=== PATIENT | female | born 1945 | race Caucasian/White ===

== ENCOUNTER → 2024-03-09 13:32 | Outpatient (REF) | payer MEDICARE, OTHER, SELFPAY | LOC: WDC 13:32 | PROVIDERS: ATTENDING PHYSICIAN Family Medicine | DX: Z12.31 Encounter for screening mammogram for malignant neoplasm of breast (principal) | CPT/HCPCS: 77063; 77067 ==

== ENCOUNTER → 2025-01-04 16:02 | Outpatient (REF) | payer MEDICARE, OTHER, SELFPAY | LOC: RAD 16:02 | PROVIDERS: ATTENDING PHYSICIAN Physician Assistant | DX: G89.29 Other chronic pain (principal) | CPT/HCPCS: 72110; 73502 ==

== ENCOUNTER 2025-03-17 09:42 | Emergency (ER) | payer MEDICARE, OTHER, SELFPAY ==
[2025-03-17 09:45] VITALS: BP 156/81
--- NOTE | 2025-03-17 10:07 | ED.GENMED ---
History of Present Illness
General
Chief Complaint: Swelling
Source: patient
Time Seen by Provider: 03/17/25 09:58
History of Present Illness
History of Present Illness:
Note:
CHIEF COMPLAINT(S)
Left leg swelling and ankle pain.
HISTORY OF PRESENT ILLNESS
The patient is an 79-year-old female presenting with swelling in her left leg, observed to be smaller compared to her right leg, and pain localized to the left ankle. The onset of swelling was during a trip to [facility], approximately
three and a [address] hours [address], over the weekend. The patient confirmed the swelling began while at her destination and was not present prior to travel. The ankle exhibits tenderness to the touch, although moving the ankle does not exacerbate the
pain. The patient denies any noticeable injury, chest pain, or dyspnea. She is not on anticoagulant therapy and has no recollection of a history of gout.
ADDITIONAL HISTORY OBTAINED FROM SOURCES OTHER THAN THE PATIENT
Per additional conversation, the patient was a passenger during travel.
PHYSICAL EXAM
- Nursing notes reviewed and vital signs reviewed.
- Edema observed in the left leg.
- Tenderness to palpation in the left ankle.
- Visibility of left ankle bones is reduced compared to the contralateral side.
PLAN
- Obtain an ultrasound of the left leg to evaluate for potential deep vein thrombosis.
- Perform an X-ray of the left ankle to assess for any structural abnormalities or fracture.
DIFFERENTIAL DIAGNOSIS
The Differential Diagnosis includes, in no particular order and is not limited to:
- Deep vein thrombosis
- Venous insufficiency
- Lymphedema
- Ankle fracture
- Sprain or ligamentous injury
- Tendonitis
- Osteoarthritis
- Gouty arthritis
- Peripheral edema due to cardiac or renal causes
Past History
Past History
ED Past Medical History: HTN and Other (diverticulosis with abscess, Syncope with Cardiac arrest, Cellulitis, osteoporosis)
ED Past Surgical History: Gynecological (Hysterectomy), Orthopedic and Tonsilectomy
Social History
Tobacco: Non-smoker
Alcohol: Occasional
Drug: None
Personal: Single
Living: with family
Employment: Retired
Family History
Family History: Other
Phy Exam
Physical Exam
Physical Exam:
see above
Scores
Heart Failure Risk
Heart Failure Risk Score: Not Applicable
Course
Orders/Labs/Results
Orders:
Orders
03/17/25 10:07
CR Ankle - Left Min 3 Views Urgent
Comment:
Reason For Exam: pain
Venous Doppler Lwr Ext Left [US Periph Venous LOWER Ext LT] Urgent
Comment:
Reason For Exam: swelling, pain
Vital Signs
Initial and Last Documented VS:
Initial Vital Signs
Temp Pulse Resp BP Pulse Ox
98.1 F 69 16 156/81 96
03/17/25 09:45 03/17/25 09:45 03/17/25 09:45 03/17/25 09:45 03/17/25 09:45
Last Documented Vital Signs
Temp Pulse Resp BP Pulse Ox
98.1 F 69 16 156/81 96
03/17/25 09:45 03/17/25 09:45 03/17/25 09:45 03/17/25 09:45 03/17/25 10:09
*Pulse Oximetry
SaO2: 96
Oxygen Mode of Delivery: Room air
Patient hypoxic: no
*Critical Care Note
Total Time (30-74mins, 75-104mins- exclusive of procedures): Not Applicable
Update Note
Update Note:
Ultrasound left leg negative for DVT x-ray negative for fracture. I suspect sprain of ankle. Offered supportive device however she declined
ED Attending Note
-
Portions of this chart may have been created with voice recognition software.� Occasional wrong word or��sound alike� substitutions may have occurred due to the inherent limitations of voice recognition software.
Discharge Plan
Departure
Patient Disposition: Home (Routine Discharge)
Date of Disposition: 03/17/25
Time of Disposition: 11:57
Patient with high blood pressure during this ER visit?: No
Discharge Problem:
Ankle sprain
Instructions: Muscle, joint, and bone pain - Discharge instructions
Prescriptions:
No Action
multivitamin with folic acid [Tab-A-Adolfo] 1 TABLET tablet
1 tab PO DAILY
mirtazapine [Remeron] 30 mg Tablet
30 mg PO HS
metoprolol succinate [Toprol XL] 25 mg Tablet Extended Release 24 Hr
37.5 mg PO BID
potassium chloride 20 mEq Tablet Extended Release
20 meq PO DAILY
ferrous sulfate [FeroSul] 325 mg (65 mg iron) Tablet
325 mg PO HS Qty: 30 0RF
rosuvastatin 10 mg Tablet
10 mg PO QPM Qty: 30 0RF
clopidogrel 75 mg Tablet
75 mg PO DAILY Qty: 30 0RF
pantoprazole 40 mg Tablet,Delayed Release (Dr/Ec)
40 mg PO DAILY Qty: 30 0RF
Referrals:
Penny Bergman DO [Family Provider, Family Practice]
Activity Restrictions/Additional Instructions:
Workup most consistent with a sprain. Use ibuprofen or Tylenol for pain. Elevate for swelling. Return if worse otherwise follow-up with your doctor
Interventions
Interventions:
*Neglect/Abuse Screening Last Done: 03/17/25 09:48
Discharge Date and Time
Print Language: SAMOAN
== END 2025-03-17 12:00 | disposition home or self-care (01) ==
LOC: EMR 09:42
PROVIDERS: EMERGENCY PHYSICIAN Emergency Medicine; FAMILY PHYSICIAN Family Medicine
DX: S93.409A Sprain of unspecified ligament of unspecified ankle, initial encounter (principal); X58.XXXA Exposure to other specified factors, initial encounter; R22.42 Localized swelling, mass and lump, left lower limb; I10 Essential (primary) hypertension; Z86.74 Personal history of sudden cardiac arrest; Z90.710 Acquired absence of both cervix and uterus
CPT/HCPCS: 99284; 73610; 93971

== ENCOUNTER 2025-03-20 19:24 | Emergency (ER) | payer MEDICARE, OTHER, SELFPAY ==
[2025-03-20 19:27] VITALS: BMI 22.1
[2025-03-20 19:35] VITALS: BP 129/63
[2025-03-20 19:49] LABS: % Basophils 0.6 % (0-2); % Immature Granulocytes 0.3 % (0-0.5); % Lymphocytes 18.6 % (20.5-51.1); % Monocytes 15.8 % (1.7-9.3); % Neutrophils 61.7 % (42.2-75.2); Absolute Eosinophils 0.2 10^3/uL (0-0.7); Absolute Lymphocytes 1.2 10^3/uL (1.2-3.4); Absolute Neutrophils 3.9 10^3/uL (1.4-6.5); Hematocrit 29.7 % (37.0-47.0); Hemoglobin 9.7 g/dL (12.0-16.0); Mean Corp Hgb Conc. 32.7 g/dL (33.0-37.0); Mean Corpuscular Hgb 36.5 pg (27.0-31.0); Mean Corpuscular Volume 111.7 fL (81.0-99.0); Mean Platelet Volume 12.1 fL (7.4-10.4); Nucleated Red Blood Cells % 0 %; Platelet Count 137 10^3/uL (130-400); Red Blood Cell Count 2.66 10^6/uL (4.20-5.40); Red Cell Dist. Width 14.5 % (11.5-14.5); White Blood Cell Count 6.3 10^3/uL (4.8-10.8)
[2025-03-20 19:54] LABS: INR 1.16; PT 15.1 Sec (11.4-14.6)
[2025-03-20 20:00] VITALS: BP 122/66
[2025-03-20 20:08] LABS: ALT (SGPT) 14 U/L (0-35); AST (SGOT) 23 U/L (14-36); Albumin 4.2 g/dl (3.5-5.0); Alkaline Phosphatase 67 U/L (38-126); Blood Urea Nitrogen 14 mg/dl (7-17); Calcium 9.1 mg/dl (8.4-10.2); Carbon Dioxide 26 mmol/L (22-30); Chloride 109 mmol/L (98-107); Estimated Creatinine Clearance 57 ml/min; Glucose 112 mg/dl (70-99); Potassium 3.3 mmol/L (3.5-5.1); Sodium 142 mmol/L (135-145); Total Bilirubin 0.6 mg/dl (0.2-1.3); Total Protein 6.4 g/dl (6.3-8.2); eGFR > 60.00
--- NOTE | 2025-03-20 20:14 | ED.GENMED ---
History of Present Illness
General
Chief Complaint: Fainting/Passed Out
Source: patient and other (Partner)
Time Seen by Provider: 03/20/25 19:54
History of Present Illness
History of Present Illness:
This patient is an 79-year-old male who presents emergency department with a reported syncopal event. She was in the car with her partner and he said that she started to say that she did not feel well. He decided to drive home, when they pulled
into the driveway he noted that she was 'passed out'. He promptly called 911. Upon medics arrival she was reportedly noted to be intermittently bradycardic. Patient does not have memory of the event, and as per partner has 'cognitive' issues that
are longstanding. She denies any complaints of chest pain, shortness of breath, palpitations, headache, dizziness, numbness, tingling, focal weakness, or other complaints. Patient was recently seen in the emergency department secondary to left
ankle swelling and at that time her x-ray and ultrasound were generally unremarkable. She was admitted August 2023 with an episode of syncope related to a CVA
Past History
Past History
ED Past Medical History: HTN and Other (diverticulosis with abscess, Syncope with Cardiac arrest, Cellulitis, osteoporosis)
ED Past Surgical History: Gynecological (Hysterectomy), Orthopedic and Tonsilectomy
Social History
Tobacco: Non-smoker
Alcohol: Occasional
Drug: None
Personal: Single
Living: with family
Employment: Retired
Family History
Family History: Other
Phy Exam
Physical Exam
Physical Exam:
GENERAL: Alert , in no apparent distress
EYE: pupils equal and reactive
NECK: Supple, no significant adenopathy.
ENT: o/p clr, mmm, no tongue laceration noted.
CARDIAC: Regular rate and rhythm .
LUNGS: Clear breath sounds bilaterally, no acute respiratory distress, no wheezes/rales/rhonchi
ABDOMEN: Soft, without focal tenderness, no r/g, no cvat
NEUROLOGICAL: Alert and oriented to person and place but not time, no focal neuro deficits otherwise, cranial nerves intact, [id number] intact motor 5 out of 5, sensory intact
SKIN: Warm and dry, skin intact.
MUSCULOSKELETAL: Mild left ankle and distal tib-fib edema, well perfused.
PSYCH: Normal and appropriate interaction.
Course
Orders/Labs/Results
Orders:
Orders
03/20/25 19:27
Electrocardiogram (*1) Urgent
Reason for Study: Chest Pain
Cardiac Monitoring- Treatment ONCE
EKG- Treatment ONCE
IV Insert/Care/Rem.- Treatment PRN
O2 Therapy [RESP] Urgent
Titrate/Wean O2 to maintain O2 sat greater than (%): 90
Special Instructions: Maintain sats >/=90%
Pulse Ox/spot Check [RESP] Urgent
Quantity: 1
Special Instructions: ON ROOM AIR
03/20/25 19:31
Comprehensive Metabolic Panel Urgent
Prothrombin Time Urgent
03/20/25 19:32
Complete Blood Count/With Diff Urgent
Troponin I Urgent
03/20/25 20:13
Potassium Chloride [KCl] 40 meq PO NOW STA
03/20/25 20:14
CT Head W/o Iv Contrast Urgent
Comment:
Reason For Exam: syncope
Abnormal Lab Results
03/20/25 03/20/25
19:31 19:32
RBC 2.66 L 10^6/uL
(4.20-5.40)
Hgb 9.7 L g/dL
(12.0-16.0)
Hct 29.7 L %
(37.0-47.0)
MCV 111.7 H fL
(81.0-99.0)
MCH 36.5 H pg
(27.0-31.0)
MCHC 32.7 L g/dL
(33.0-37.0)
MPV 12.1 H fL
(7.4-10.4)
Absolute Monos (auto) 1.0 H 10^3/uL
(0.1-0.6)
Lymphocytes % 18.6 L %
(20.5-51.1)
Monocytes % 15.8 H %
(1.7-9.3)
PT 15.1 H Sec
(11.4-14.6)
Potassium 3.3 L mmol/L
(3.5-5.1)
Chloride 109 H mmol/L
(98-107)
Glucose 112 H mg/dl
(70-99)
03/20/25 19:32
03/20/25 19:31
Vital Signs
Initial and Last Documented VS:
Initial Vital Signs
Temp Resp
97.6 F 16
03/20/25 19:27 03/20/25 19:27
Last Documented Vital Signs
Temp Pulse Resp BP Pulse Ox
97.6 F 71 17 157/76 94
03/20/25 19:27 03/20/25 21:45 03/20/25 21:45 03/20/25 21:07 03/20/25 21:45
*Critical Care Note
Total Time (30-74mins, 75-104mins- exclusive of procedures): Not Applicable
Update Note
Update Note:
Patient presents to the Emergency Department with ___syncope
Number and Complexity of Problems Addressed at the Encounter
� Chronic conditions affecting care:
� Acute Exacerbation and/or Progression of Chronic Illness:
� Differential Diagnosis includes: But not limited to medication effect, electrolyte disorder, CVA, dehydration, vasovagal event, etc. etc.
Amount and/or Complexity of Data to be Reviewed and Analyzed
� I performed an independent evaluation of and my interpretation is:
EKG: Read by me, normal sinus rhythm with first-degree block, LAD, no acute ischemia
CT:read by dr jeaneth dickinson, nad
Xrays:
Laboratory Studies:baseline anemia, mild hypoK, trop wnl
Other:
� Review of other/old records reveals: Patient was admitted November 2022 with almost identical event of a syncopal event in the car, noted to be mildly bradycardic and had medication adjustments at that time. Patient was also
admitted August 2023 with an episode of syncope related to a acute versus subacute CVA in the right hemisphere. Discharge summaries were reviewed by me.
� Clinical information was obtained by an independent historian: Partner who is bedside
� Prescriptions/Medications Considered but not given:
� Further testing considered but not performed:
Risk of Complications and/or Morbidity or Mortality of Patient Management
� Social determinants of health affecting care:
� Discussion with other providers (PCP, Hospitalists, Consultants, etc):
� Escalation of care including admission/observation vs risk of discharge considered: Patient and partner very eager to go home. Asymptomatic here. Patient has not had episodes of bradycardia here. It is noted the patient is
on a beta-maile, recommendation that she hold that the next few days given that there was noted intermittent bradycardia via EMS. They declined admission/observation to the hospital. No acute abnormalities noted on her workup here, discussed
with him importance of follow-up and reasons return to the ER.
ED Attending Note
-
Portions of this chart may have been created with voice recognition software.� Occasional wrong word or��sound alike� substitutions may have occurred due to the inherent limitations of voice recognition software.
Discharge Plan
Departure
Patient Disposition: Home (Routine Discharge)
Date of Disposition: 03/20/25
Time of Disposition: 21:47
Patient with high blood pressure during this ER visit?: Yes
Condition: Good
Discharge Problem:
Syncope
Instructions: Syncope (Fainting) (DC), BLOOD PRESSURE
Prescriptions:
No Action
multivitamin with folic acid [Tab-A-Adolfo] 1 TABLET tablet
1 tab PO DAILY
mirtazapine [Remeron] 30 mg Tablet
30 mg PO HS
metoprolol succinate [Toprol XL] 25 mg Tablet Extended Release 24 Hr
37.5 mg PO BID
potassium chloride 20 mEq Tablet Extended Release
20 meq PO DAILY
ferrous sulfate [FeroSul] 325 mg (65 mg iron) Tablet
325 mg PO HS Qty: 30 0RF
rosuvastatin 10 mg Tablet
10 mg PO QPM Qty: 30 0RF
clopidogrel 75 mg Tablet
75 mg PO DAILY Qty: 30 0RF
pantoprazole 40 mg Tablet,Delayed Release (Dr/Ec)
40 mg PO DAILY Qty: 30 0RF
Referrals:
Penny Bergman DO [Family Provider, Family Practice] - Tomorrow
Activity Restrictions/Additional Instructions:
PLEASE DISCONTINUE YOUR METOPROLOL FOR THE NEXT 3 DAYS. CALL YOUR DOCTOR TOMORROW FOR PROMPT FOLLOW-UP THIS WEEK. IF YOU DEVELOP DIZZINESS, CHEST PAIN, SHORTNESS OF BREATH, PALPITATIONS, HEADACHE, OR OTHER WORRISOME SIGNS, PLEASE RETURN TO THE ER
IMMEDIATELY EXCLAMATION
Interventions
Interventions:
*Risk Screen - Suicide Last Done: 03/20/25 19:27
*General Assessment Last Done: 03/20/25 19:27
*Neglect/Abuse Screening Last Done: 03/20/25 19:27
*ED- Fall Risk Assessment Last Done: 03/20/25 19:27
*ED COVID-19 Vaccine History Last Done: 03/20/25 19:27
*Nursing Disposition Last Done: 03/20/25 21:55
ED- Cardiac Assessment Last Done: 03/20/25 19:27
ED- Neurological Assessment Last Done: 03/20/25 19:27
Discharge Date and Time
Discharge Date/Time: 03/20/25 21:56
Print Language: AUSTRALIAN
[2025-03-20 20:25] LABS: Troponin I < 0.012 ng/ml
[2025-03-20 21:07] VITALS: BP 157/76
[2025-03-20] MEDS: KCL 40 MEQ PO (21:07)
== END 2025-03-20 21:56 | disposition home or self-care (01) ==
LOC: EMR 19:24
PROVIDERS: EMERGENCY PHYSICIAN Emergency Medicine; FAMILY PHYSICIAN Family Medicine
DX: R55 Syncope and collapse (principal); R00.1 Bradycardia, unspecified; I10 Essential (primary) hypertension; Z86.73 Personal history of transient ischemic attack (TIA), and cerebral infarction without residual deficits; Z86.74 Personal history of sudden cardiac arrest; Z79.899 Other long term (current) drug therapy
CPT/HCPCS: 99284; 70450; 80053; 84484; 85025; 85610; 93005